=== PATIENT | female | born 1960 | race Caucasian/White ===

== ENCOUNTER 2016-05-11 08:18 | Emergency (ER) | payer OTHER | END 2016-05-11 10:15 | disposition home or self-care (01) | LOC: FER 08:18 | DX: F41.1 Generalized anxiety disorder (principal); Z79.899 Other long term (current) drug therapy | CPT/HCPCS: J3360 ==

== ENCOUNTER → 2021-05-11 | Day surgery (SDC) | payer OTHER ==
[~2021-05-11] VITALS: Ht 177.8 cm; Wt 109.1 kg
[~2021-05-11] MED LIST: ADULT LOW DOSE81 MG PO; FISH OIL 500 M1 EAC2 PO; FOLIC ACID PO; FOLIC ACID-VIT1 EACH PO; PAXIL40 MG PO; RITALIN10 MG PO; SYNTHROID25 MCG PO; VITAMIN D1000 UNIT PO; XANAX1 MG PO; ZOLOFT100 MG PO; ZYPREXA 5MG TABL5 MG PO; [UNRECOGNIZED DRUG - OTHER] PO
[2021-05-11 13:53] LABS: BUN/CREAT RATIO (CALC) 11.4 RATIO; CREATININE 1.14 mg/dL (0.51-0.95); POTASSIUM 4.9 mmol/L (3.5-5.1)
== END | disposition home or self-care (01) ==
LOC: FAS 10:07
PROVIDERS: Surgery
DX: Z12.11 Encounter for screening for malignant neoplasm of colon (principal); D12.3 Benign neoplasm of transverse colon; K57.30 Diverticulosis of large intestine without perforation or abscess without bleeding; E78.5 Hyperlipidemia, unspecified; E03.9 Hypothyroidism, unspecified; Z79.82 Long term (current) use of aspirin; I48.91 Unspecified atrial fibrillation; F41.9 Anxiety disorder, unspecified
CPT/HCPCS: 36415; 80048; 93005; J2250; J2704; J7120

== ENCOUNTER 2021-08-11 17:54 | Emergency (ER) | payer OTHER ==
[2021-08-11 19:05] LABS: BASOPHIL 0.1 % (0-2); EOSINOPHIL 0 % (0-5); HCT 40.8 % (37.0-47.0); HGB 14.2 g/dl (12.5-16.0); LYMPHOCYTE 5.9 % (15-48); MCH 30.1 pg (25.0-31.0); MCHC 34.8 g/dL (32.0-36.0); MCV 86.4 fL (78.0-100.0); MONOCYTE 2.1 % (0-12); MPV 10.3 fL (6.0-9.5); NEUTROPHIL 90.9 % (41-80); NRBC 0; PLT 292 K/uL (150-400); RBC 4.72 M/uL (4.20-5.40); RDW 14.8 % (11.5-14.0); WBC 11.2 K/uL (4.0-10.5)
[2021-08-11 19:25] LABS: ALBUMIN 4.2 g/dL (3.4-5.0); ALKALINE PHOSHATASE 111 U/L (46-116); ALT 20 U/L (14-59); AST 21 U/L (15-37); BILIRUBIN - TOTAL 1.1 mg/dL (0.2-1.0); BUN 19 mg/dL (7-18); BUN/CREAT RATIO (CALC) 11.1 RATIO; CHLORIDE 102 mmol/L (98-107); CO2 (BICARBONATE) 17 mmol/L (21-32); CREATININE 1.71 mg/dL (0.51-0.95); GLOBULIN (CALCULATION) 3.8 g/dL; GLUCOSE 122 mg/dL (74-106); POTASSIUM 4.1 mmol/L (3.5-5.1)
[2021-08-11 19:27] LABS: ACETAMINOPHEN (TYLENOL) < 2.0 ug/mL (10.0-30.0); LACTIC ACID 3.3 mmol/L (0.4-1.9)
[2021-08-11 22:22] LABS: BILIRUBIN NEGATIVE (NEGATIVE); BLOOD NEGATIVE Ery/uL (NEGATIVE); CLARITY CLEAR (CLEAR); COLOR YELLOW (YELLOW); GLUCOSE (U) 3+ mg/dL (NORMAL); LEUKOCYTES NEGATIVE Leu/uL (NEGATIVE); NITRITE NEGATIVE (NEGATIVE); PROTEIN NEGATIVE (NEGATIVE); SPECIFIC GRAVITY 1.025 (1.001-1.030); UROBILINOGEN 0.2 mg/dL (0.2-1.0)
[2021-08-11 22:26] LABS: AMPHETAMINES POSITIVE (NEGATIVE); BARBITURATES NEGATIVE (NEGATIVE); ECSTASY (MDMA) NEGATIVE (NEGATIVE); MARIJUANA (THC) NEGATIVE (NEGATIVE); METHADONE NEGATIVE (NEGATIVE); OPIATES NEGATIVE (NEGATIVE); OXYCODONE NEGATIVE (NEGATIVE)
[2021-08-12 06:06] LABS: INFLUENZA A NAA NEGATIVE (NEGATIVE)
[2021-08-12 06:19] LABS: CORONAVIRUS 2019 SARS-COV-2 NEGATIVE (NEGATIVE)
== END 2021-08-12 09:18 | disposition home or self-care (01) ==
LOC: FER 17:54
PROVIDERS: Emergency Medicine
DX: R41.82 Altered mental status, unspecified (principal); I50.9 Heart failure, unspecified; N18.32 Chronic kidney disease, stage 3b; F15.90 Other stimulant use, unspecified, uncomplicated; Z20.822 Contact with and (suspected) exposure to COVID-19
CPT/HCPCS: 36415; 70450; 70551; 71250; 80053; 80305; 81003; 82140; 83605; 83880; 84145; 84484; 85025; 85379; 87040; 93005; 96374; 96375; G0480; J0692; J1630; J7030; U0002